=== PATIENT | male | born 1960 | race Caucasian/White ===

== ENCOUNTER 2019-10-13 19:30 | Emergency (ER) | payer MEDICAID ==
[~2019-10-13] VITALS: Ht 167.6 cm; Wt 57.8 kg
[2019-10-13 19:33] VITALS: BP 138/78
--- NOTE | 2019-10-13 20:27 | NUR ---
pt called to room from lobby
[2019-10-13] MEDS ORDERED: ROSU10TA2 PO (20:43)
[2019-10-13] MEDS ORDERED: CHLO50TA6 PO (20:44)
[2019-10-13] MEDS ORDERED: LISI-167 PO (20:44)
[2019-10-13] MEDS ORDERED: IBUPROFEN 600 MG TABLET ONE (21:19)
[2019-10-13] MEDS ORDERED: IBUPROFEN 600 MG TABLET PO ONE (21:30)
== END 2019-10-13 21:55 | disposition home or self-care (01) ==
LOC: ED 21:30
DX: M25.572 Pain in left ankle and joints of left foot (principal); F17.200 Nicotine dependence, unspecified, uncomplicated; X58.XXXA Exposure to other specified factors, initial encounter; Y93.89 Activity, other specified; Y92.410 Unspecified street and highway as the place of occurrence of the external cause; Y99.8 Other external cause status
CPT/HCPCS: 99283

== ENCOUNTER 2020-06-08 17:03 | Emergency (ER) | payer MEDICAID ==
[~2020-06-08] VITALS: Ht 167.6 cm; Wt 60.0 kg
[~2020-06-08 17:03] MED LIST: CHLO50TA6 PO; LISI-167 PO; ROSU10TA2 PO
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
--- NOTE | 2020-06-08 17:32 | NUR ---
URINE SPECIMEN COLLECTED AND SENT TO LAB.
[2020-06-08] MEDS ORDERED: LORazepam 1MG TABLET ONE (17:38)
[2020-06-08 17:46] LABS: BASOPHILS % (AUTO) 1 % (0-1); EOSINOPHILS % (AUTO) 1 % (1-7); LYMPHOCYTES % (AUTO) 21 % (22-44); MEAN CORPUSCULAR HEMOGLOBIN 33.9 pg (27.5-34.5); MEAN CORPUSCULAR HGB CONC 34.6 g/dL (33.2-36.2); MEAN PLATELET VOLUME 8.9 fL (7.4-10.4); MONOCYTES % (AUTO) 7 % (2-9); NEUTROPHILS % (AUTO) 69 % (42-75); PLATELET COUNT 229 x10^3/uL (130-400); RED BLOOD COUNT 4.23 x10^6/uL (4.38-5.82); RED CELL DISTRIBUTION WIDTH 13.7 % (9.4-14.8)
[2020-06-08 17:52] LABS: MD NO
[2020-06-08 17:52] LABS: AMPHETAMINE SCREEN, URINE Positive (Negative); BARBITURATE SCREEN, URINE Negative (Negative); BENZODIAZEPINE SCREEN, URINE Negative (Negative); CANNABINOID SCREEN, URINE Positive (Negative); COCAINE SCREEN, URINE Negative (Negative); METHADONE SCREEN, URINE Negative (Negative); OPIATE SCREEN, URINE Negative (Negative)
[2020-06-08 17:57] LABS: ALBUMIN 3.9 g/dL (3.4-5.0); ANION GAP 6 mmol/L (5-15); CALCIUM 9.3 mg/dL (8.5-10.1); CHLORIDE 109 mmol/L (98-107); CREATININE 0.98 mg/dL (0.7-1.3); SALICYLATE LEVEL 3.2 mg/dL (2.8-20.0)
[2020-06-08] MEDS ORDERED: LORazepam 1MG TABLET PO ONE (18:00)
--- NOTE | 2020-06-08 18:46 | NUR ---
AISHAU FULL AT THIS TIME. FAXED TO [facility]
--- NOTE | 2020-06-08 18:49 | NUR ---
BREAK RN: PT RESTING IN ROOM. SITTER AT DOOR. WILL CONTINUE TO MONITOR WHILE PRIMARY RN IS ON BREAK.
--- NOTE | 2020-06-08 23:24 | NUR ---
PT RESTING IN [facility] AT THIS TIME, SITTER AT DOOR, WILL CONTINUE TO MONITOR.
--- NOTE | 2020-06-09 01:24 | NUR ---
PT RESTING IN [facility] WITHIN DIRECT LINE OF SITE, [facility] AT THIS TIME, WILL CONTINUE TO MONITOR. PT'S BELONGINGS STILL IN SAFE KEEPING.
--- NOTE | 2020-06-09 02:03 | NUR ---
REPORT GIVEN TO HENRIQUE JULIEN.
--- NOTE | 2020-06-09 03:09 | NUR ---
REPORT FROM HENRIQUE JULIEN
--- NOTE | 2020-06-09 04:17 | NUR ---
pt resting on [facility]. sitter at doorway for frequent checks. respirations even and unlabored.
--- NOTE | 2020-06-09 06:30 | NUR ---
pt resting on [facility]. sitter at doorway for frequent checks. respirations even and unlabored.
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
--- NOTE | 2020-06-09 07:20 | NUR ---
pt has come back into department by himself and has taken the blanket out of his room. pt standing in hallway and yelling "give me my fucking clothes, I wanna go home" attempting to verbally calm pt and re-orient. pt has again walked out of department through the ambulance bay. security dodson been notified
--- NOTE | 2020-06-09 07:30 | NUR ---
pt brought back to room with security. pt now escalating verbally and making threats to security staff. security x3 at [facility] attempting to restrain pt. pt is physically trying to escape and restrain against security pt placed in 4 point locking restraints for safety pt continues to swwaer at staff and make threatening statements
--- NOTE | 2020-06-09 07:45 | NUR ---
pt argumentative. attempting to re-orient pt ad update on POC, pt continues swearing at staff
[2020-06-09] MEDS ORDERED: LORazepam 2 MG/ML, 1ML IM ONE (08:00)
--- NOTE | 2020-06-09 08:15 | NUR ---
pt medicated for sedation/agitation per MD order. pulse ox placed for pt safety. pt initially tried to remove it room secure. sitter present for safety pt in no resp. distress
[2020-06-09] MEDS ORDERED: LORazepam 2 MG/ML, 1ML ONE (08:18)
--- NOTE | 2020-06-09 08:30 | NUR ---
attempted to re-ooriennt pt and pdated on POC. pt calls this RN "the white devil"
--- NOTE | 2020-06-09 09:00 | NUR ---
pt uncooperative with VS. pt angry and yelling. pt continues swearing at staff and making threatening statements restraints in place. room secure. sitter present for safety
--- NOTE | 2020-06-09 10:00 | NUR ---
restraints remain in place. pt continues to be agitated and argumentative. pt continues to pull on restraints and attempt to pull his wrists free no resp. distress. room secure. sitter present for safety
--- NOTE | 2020-06-09 10:30 | NUR ---
pt is resting at this time. no resp. distress. room secure. sitter present for safety
--- NOTE | 2020-06-09 10:45 | NUR ---
Vincent SAEZ at bedside for psych eval pt in no reps distress. pt cooperative with psych assessment at this time
--- NOTE | 2020-06-09 10:55 | NUR ---
pt to be released from restraints and monitored for at least 30 minutes prior to possible D/C. pt agrees to POC and states that he is no longer feeling aggressive
--- NOTE | 2020-06-09 11:00 | NUR ---
pt declines meal tray at this time. requesting coffee
--- NOTE | 2020-06-09 11:15 | NUR ---
coffee given to pt per request. pt still declines meal tray at this time. pt calm and cooperative at this time. pt glasses have a lens popped out. glasses cleaned and attempting to put lens back in
--- NOTE | 2020-06-09 11:45 | NUR ---
pt to be D/c per MD. belongings returned. pt continues to be coopertive with assessments and has made no threatening statements
--- NOTE | 2020-06-09 11:55 | NUR ---
BREAK RN: PATIENT STABLE AND AMBULATORY WITH STEADY GAIT FROM ED, ALL PATIENT BELONGINGS GATHERED BY PATIENT AND TAKEN WITH HIM. Addendum: 06/09/20 at 1202 by CHRISTIANRARivera BREAK RN: BUS PASS PROVIDED TO PATIENT.
[2020-06-09 12:42] VITALS: BP 159/89
== END 2020-06-09 12:47 | disposition home or self-care (01) ==
LOC: ED 17:51
DX: R45.851 Suicidal ideations (principal); F15.150 Other stimulant abuse with stimulant-induced psychotic disorder with delusions; F12.10 Cannabis abuse, uncomplicated; I10 Essential (primary) hypertension; F17.200 Nicotine dependence, unspecified, uncomplicated
CPT/HCPCS: 36415; 80048; 80299; 80307; 80329; 82040; 84443; 85025; 96372; 99285; J2060; G0480